=== PATIENT | female | born 1950 | race Caucasian/White ===

== ENCOUNTER → 2018-10-02 | Outpatient (CLI) | payer MEDICARE ==
--- NOTE | 2018-10-02 15:27 | US ---
EXAMINATION TYPE: US thyroid st tissue head/neck DATE OF EXAM: 10/02/2018 COMPARISON: NONE CLINICAL HISTORY: E03.8 Other specified hypothyroidism. GLAND SIZE: Right Lobe: cm Overall Parenchyma: Left Lobe: cm Overall Parenchyma: Isthmus Thickness: cm NODULES RIGHT: # of nodules measured on right: 1. X x cm nodule at the pole with margins; . This nodule is and shows . Prior size: x x cm 2. X x cm nodule at the pole with margins; . This nodule is and shows . Prior size: x x cm 3. X x cm nodule at the pole with margins; . This nodule is and shows . Prior size: x x cm 4. X x cm nodule at the pole with margins; . This nodule is and shows . Prior size: x x cm LEFT: # of nodules measured on left: 1. X x cm nodule at the pole with margins; . This nodule is and shows . Prior size: x x cm 2. X x cm nodule at the pole with margins; . This nodule is and shows . Prior size: x x cm 3. X x cm nodule at the pole with margins; . This nodule is and shows . Prior size: x x cm 4. X x cm nodule at the pole with margins; . This nodule is and shows . Prior size: x x cm ISTHMUS: # of nodules measured in the isthmus: 1. X x cm nodule at the pole with margins; . This nodule is and shows . Prior size: x x cm Bilateral neck scanned, no evidence of lymphadenopathy. IMPRESSION: EXAMINATION TYPE: US thyroid st tissue head/neck DATE OF EXAM: 10/02/2018 COMPARISON: NONE CLINICAL HISTORY: E03.8 Other specified hypothyroidism. GLAND SIZE: Right Lobe: 5.4 x 1.9 x 1.9 cm Overall Parenchyma: heterogenous Left Lobe: 4.6 x 1.9 x 2.1 cm Overall Parenchyma: heterogeneous Isthmus Thickness: 0.4 cm NODULES RIGHT: # of nodules measured on right: 0 LEFT: # of nodules measured on left: 1 1. 2.3 x 2.1 x 2.1 cm hypoechoic solid nodule at the lower pole with well-defined margins. This no dule is wider than tall and shows intranodular vascularity. no prior at this facility ISTHMUS: # of nodules measured in the isthmus: 0 Bilateral neck scanned, no evidence of lymphadenopathy. IMPRESSION: Thyromegaly with heterogeneous tissue suggestive of thyroiditis. There is a dominant 2.3 cm nodule wi thin the left lobe of the thyroid.
== END | disposition home or self-care (01) ==
LOC: RADUSWWP 14:54
PROVIDERS: ATTEND Internal Medicine Endocrinology, Diabetes & Metabolism
DX: E04.1 Nontoxic single thyroid nodule (principal)
CPT/HCPCS: 76536